=== PATIENT | female | born 1950 | race Caucasian/White ===

== ENCOUNTER 2016-11-05 15:21 | Emergency (ER) | payer OTHER ==
--- NOTE | 2016-11-05 16:43 | ED NURSING NOTES ---
Clinical Report - Nurses [facility] [address] [place] [address] 11/05/2016 15:22 Patient: JASMIN SUAREZ TRIAGE Triage time 1544 PM. Chief Complaint: (Low Blood Pressure). Alert. No acute distress. HEBER COMA SCORE: [place] Coma Scale: 15- eyes open spontaneously (4); best verbal response- oriented x 4 (5); best motor response- obeys commands (6). --15:50 Maurice Franco R.N. 15:44 11/05/16. BP: 129/69. HR: 84. RR: 16. O2 saturation: 99% on room air. Temp: 98.4 F (oral). Pain level now: 0/10. --15:50 Maurice Franco R.N. Weight: 113.3 kg stated. Height/Length: 67 inches Per Patient. BMI: 39.2. --15:49 Maurice Franco R.N. Medications Amlodipine Besylate Oral 5 mg, daily. Cozaar Oral 50 mg, daily. Insulin 100 units, at bedtime. Metformin HCl Oral 500 mg, daily. Novalog insulin (sliding scale). --15:46 Maurice Franco R.N. Allergies Codeine. Erythromycin. --15:46 Maurice Franco R.N. History Arrived by private vehicle. Historian: patient. Accompanied by family. This started today. ( Patient presents to the ED with symptoms of dizziness and low blood pressure. Patient states she woke up this morning feeling "crummy and fatigued." Patients states that she has been sick with the respiratory virus and has been coughing and feeling weak.). She has had weakness, a cough and difficulty breathing. Treatment RANCH HAND: None. PAST MEDICAL HX: Diabetes mellitus. Hypertension. The patient is premenarchal. Denies current . SOCIAL HX: Never smoker. Alcohol use. (no). History of drug use. (no). FALL RISK ASSESSMENT: Fall risk assessment completed. No fall risk identified. NUTRITIONAL RISK ASSESSMENT: The nutritional risk assessment revealed no deficiencies. FUNCTIONAL ASSESSMENT: Functional assessment: no impairments noted. LEARNING NEEDS ASSESSMENT: The learning needs assessment revealed no barriers. SKIN INTEGRITY ASSESSMENT: Skin integrity risk assessment completed. No skin integrity risk identified. --15:50 Maurice Franco R.N. PROBLEMS: Diabetes Mellitus. Hypertension. --15:48 Maurice Franco R.N. ADDITIONAL SURGERIES: Cholecystectomy. . --15:48 Maurice Franco R.N. PHYSICAL ASSESSMENT Ambulatory to room. GENERAL / NEURO / PSYCH: Alert. Oriented X 4. Appears in no acute distress. HEENT: Pupils equal, round and reactive to light. No facial asymmetry noted. Mucous membranes are pink. RESPIRATORY: Respirations not labored. Nonproductive cough. Chest nontender. Breath sounds within normal limits. CVS: Normal sinus rhythm noted. Capillary refill less than 2 seconds. Pulses within normal limits. GI / : Abdomen soft and nontender and normal bowel sounds. SKIN: Skin intact. Skin is warm and dry. Normal skin turgor. --15:50 Maurice Franco R.N. NURSING PROGRESS NOTES 15:56 11/05/16. BP: 131/62 taken on the left arm, via an automated monitor, while lying. HR: 83. --15:56 Maurice Franco R.N. 15:56 11/05/16. BP: 116/59 taken on the left arm, via an automated monitor, while sitting. HR: 95. --15:57 Maurice Franco R.N. 15:57 11/05/16. BP: 128/75 taken on the left arm, via an automated monitor, while standing. HR: 100. --15:57 Maurice Franco R.N. DISPOSITION / DISCHARGE 16:44 11/05/16. BP: 108/50. HR: 91. RR: 16. O2 saturation: 99%. --16:45 Maurice Franco R.N. Departure time: 17:10 Nov 05 2016. No learning barriers present. Discharge instructions provided and reviewed with the patient. Patient verbalized understanding. Written instructions provided in Greek. The patient was discharged by the physician. She was discharged home and accompanied by educational programming director. She left the Emergency Department ambulatory and via private vehicle. Cupola Operator driving. --18:47 Atlagracia Archibald R.N. Locked/Released at 11/05/2016 18:47 by Altagracia Archibald R.N.
--- NOTE | 2016-11-05 16:43 | ED CLINICAL REPORT ---
Clinical Report - Physicians/Mid Levels [facility] [address] [place] [address] 11/05/2016 15:22 Patient: JASMIN SUAREZ Time Seen: 15:59; initial patient contact. Arrived- By private vehicle. Historian- patient. HISTORY OF PRESENT ILLNESS Chief Complaint: BLOOD PRESSURE CHECK. ( Telephone warm and lightheaded, checked BP at home, systolic in the 90's.). This started today and is now gone (lasted about 2 hours). At its maximum, severity described as moderate. When seen in the E.D., it was gone. No loss of appetite, headache or visual disturbance. She has had fatigue. Similar symptoms previously: Twice. Recent medical care: Not recently seen/assessed. REVIEW OF SYSTEMS No fever, difficulty breathing, chest pain or pain or chills. No calf pain, cough, difficulty breathing, pedal edema or palpitations. No diarrhea, nausea, vomiting, fainting episodes or headache. No head injury or numbness. The patient has had dizziness. All systems otherwise negative, except as recorded above. PAST HISTORY Diabetes Mellitus. Hypertension. SURGERIES: Cholecystectomy. . SOCIAL HISTORY Never smoker. No alcohol use or drug use. ADDITIONAL NOTES The nursing notes have been reviewed with agreement regarding the chief complaint, PMH and patient medications and allergies. PHYSICAL EXAM Vital Signs: 11/05/2016 15:57 BP: 128/75. HR: 100. 11/05/2016 15:56 BP: 116/59. HR: 95. 11/05/2016 15:56 BP: 131/62. HR: 83. Have been reviewed. Postural vitals normal. Appearance: Alert. No acute distress. Eyes: Pupils equal, round and reactive to light. Eyes normal inspection. No pale conjunctivae. ENT: Pharynx normal. Neck: Normal inspection. No JVD. CVS: Normal heart rate and rhythm. Heart sounds normal. Respiratory: No respiratory distress. Breath sounds normal. Abdomen: Soft and nontender. Bowel sounds normal. Skin: Skin warm and dry. Normal skin color. No rash. Normal skin turgor. Extremities: Extremities exhibit normal ROM. No calf tenderness. No lower extremity edema. Neuro: Oriented X 3. No motor deficit. No sensory deficit. PROGRESS AND PROCEDURES Course of Care: Symptoms tend to occur not long after taking Amlodipine dose. Recommended keeping a BID BP log and discuss either splitting the dose or switching to PM dosing, but discuss w/ PCP prior. 11/05/2016 15:44 BP: 129/69. HR: 84. RR: 16. O2 saturation: 99%. Temp: 98.4 F. Pain level now: 0/10. Vital Signs: have been reviewed as normal. Disposition: Discharged home in good condition. Condition: good. CLINICAL IMPRESSION Mild idiopathic hypotension. INSTRUCTIONS Drink plenty of fluids. Your Current Medications: CONTINUE TAKING THE FOLLOWING MEDICATIONS: Amlodipine Besylate Oral : 5 mg daily. Cozaar Oral : 50 mg daily. Insulin* : 100 units at bedtime. Metformin HCl Oral : 500 mg daily. Novalog insulin* : sliding scale. Follow-up: Follow up with your doctor in about three days. Call for an appointment. Blood pressure screening was not performed during this visit because the patient has an active diagnosis of hypertension. (Electronically signed by Aiden Pastor Dr. 11/06/2016 20:39)
--- NOTE | 2016-11-05 16:43 | ED CLINICAL REPORT ---
Clinical Report - Physicians/Mid Levels [facility] [address] [place] [address] 11/05/2016 15:22 Patient: JASMIN SUAREZ Time Seen: 15:59; initial patient contact. Arrived- By private vehicle. Historian- patient. HISTORY OF PRESENT ILLNESS Chief Complaint: BLOOD PRESSURE CHECK. ( [place] warm and lightheaded, checked BP at home, systolic in the 90's.). This started today and is now gone (lasted about 2 hours). At its maximum, severity described as moderate. When seen in the E.D., it was gone. No loss of appetite, headache or visual disturbance. She has had fatigue. Similar symptoms previously: Twice. Recent medical care: Not recently seen/assessed. REVIEW OF SYSTEMS No fever, difficulty breathing, chest pain or pain or chills. No calf pain, cough, difficulty breathing, pedal edema or palpitations. No diarrhea, nausea, vomiting, fainting episodes or headache. No head injury or numbness. The patient has had dizziness. All systems otherwise negative, except as recorded above. PAST HISTORY Diabetes Mellitus. Hypertension. SURGERIES: Cholecystectomy. . SOCIAL HISTORY Never smoker. No alcohol use or drug use. ADDITIONAL NOTES The nursing notes have been reviewed with agreement regarding the chief complaint, PMH and patient medications and allergies. PHYSICAL EXAM Vital Signs: 11/05/2016 15:57 BP: 128/75. HR: 100. 11/05/2016 15:56 BP: 116/59. HR: 95. 11/05/2016 15:56 BP: 131/62. HR: 83. Have been reviewed. Postural vitals normal. Appearance: Alert. No acute distress. Eyes: Pupils equal, round and reactive to light. Eyes normal inspection. No pale conjunctivae. ENT: Pharynx normal. Neck: Normal inspection. No JVD. CVS: Normal heart rate and rhythm. Heart sounds normal. Respiratory: No respiratory distress. Breath sounds normal. Abdomen: Soft and nontender. Bowel sounds normal. Skin: Skin warm and dry. Normal skin color. No rash. Normal skin turgor. Extremities: Extremities exhibit normal ROM. No calf tenderness. No lower extremity edema. Neuro: Oriented X 3. No motor deficit. No sensory deficit. PROGRESS AND PROCEDURES Course of Care: Symptoms tend to occur not long after taking Amlodipine dose. Recommended keeping a BID BP log and discuss either splitting the dose or switching to PM dosing, but discuss w/ PCP prior. 11/05/2016 15:44 BP: 129/69. HR: 84. RR: 16. O2 saturation: 99%. Temp: 98.4 F. Pain level now: 0/10. Vital Signs: have been reviewed as normal. Disposition: Discharged home in good condition. Condition: good. CLINICAL IMPRESSION Mild idiopathic hypotension. INSTRUCTIONS Drink plenty of fluids. Your Current Medications: CONTINUE TAKING THE FOLLOWING MEDICATIONS: Amlodipine Besylate Oral : 5 mg daily. Cozaar Oral : 50 mg daily. Insulin* : 100 units at bedtime. Metformin HCl Oral : 500 mg daily. Novalog insulin* : sliding scale. Follow-up: Follow up with your doctor in about three days. Call for an appointment. Blood pressure screening was not performed during this visit because the patient has an active diagnosis of hypertension. (Electronically signed by Aiden Pastor Dr. 11/06/2016 20:39)
--- NOTE | 2016-11-05 16:43 | ED NURSING NOTES ---
Clinical Report - Nurses [facility] [address] [place] [address] 11/05/2016 15:22 Patient: JASMIN SUAREZ TRIAGE Triage time 1544 PM. Chief Complaint: (Low Blood Pressure). Alert. No acute distress. HEBER COMA SCORE: [place] Coma Scale: 15- eyes open spontaneously (4); best verbal response- oriented x 4 (5); best motor response- obeys commands (6). --15:50 Maurice Franco R.N. 15:44 11/05/16. BP: 129/69. HR: 84. RR: 16. O2 saturation: 99% on room air. Temp: 98.4 F (oral). Pain level now: 0/10. --15:50 Maurice Franco R.N. Weight: 113.3 kg stated. Height/Length: 67 inches Per Patient. BMI: 39.2. --15:49 Maurice Franco R.N. Medications Amlodipine Besylate Oral 5 mg, daily. Cozaar Oral 50 mg, daily. Insulin 100 units, at bedtime. Metformin HCl Oral 500 mg, daily. Novalog insulin (sliding scale). --15:46 Maurice Franco R.N. Allergies Codeine. Erythromycin. --15:46 Maurice Franco R.N. History Arrived by private vehicle. Historian: patient. Accompanied by family. This started today. ( Patient presents to the ED with symptoms of dizziness and low blood pressure. Patient states she woke up this morning feeling "crummy and fatigued." Patients states that she has been sick with the respiratory virus and has been coughing and feeling weak.). She has had weakness, a cough and difficulty breathing. Treatment SENIOR MEDICAL TECHNOLOGIST: None. PAST MEDICAL HX: Diabetes mellitus. Hypertension. The patient is premenarchal. Denies current . SOCIAL HX: Never smoker. Alcohol use. (no). History of drug use. (no). FALL RISK ASSESSMENT: Fall risk assessment completed. No fall risk identified. NUTRITIONAL RISK ASSESSMENT: The nutritional risk assessment revealed no deficiencies. FUNCTIONAL ASSESSMENT: Functional assessment: no impairments noted. LEARNING NEEDS ASSESSMENT: The learning needs assessment revealed no barriers. SKIN INTEGRITY ASSESSMENT: Skin integrity risk assessment completed. No skin integrity risk identified. --15:50 Maurice Franco R.N. PROBLEMS: Diabetes Mellitus. Hypertension. --15:48 Maurice Franco R.N. ADDITIONAL SURGERIES: Cholecystectomy. . --15:48 Maurice Franco R.N. PHYSICAL ASSESSMENT Ambulatory to room. GENERAL / NEURO / PSYCH: Alert. Oriented X 4. Appears in no acute distress. HEENT: Pupils equal, round and reactive to light. No facial asymmetry noted. Mucous membranes are pink. RESPIRATORY: Respirations not labored. Nonproductive cough. Chest nontender. Breath sounds within normal limits. CVS: Normal sinus rhythm noted. Capillary refill less than 2 seconds. Pulses within normal limits. GI / : Abdomen soft and nontender and normal bowel sounds. SKIN: Skin intact. Skin is warm and dry. Normal skin turgor. --15:50 Maurice Franco R.N. NURSING PROGRESS NOTES 15:56 11/05/16. BP: 131/62 taken on the left arm, via an automated monitor, while lying. HR: 83. --15:56 Maurice Franco R.N. 15:56 11/05/16. BP: 116/59 taken on the left arm, via an automated monitor, while sitting. HR: 95. --15:57 Maurice Franco R.N. 15:57 11/05/16. BP: 128/75 taken on the left arm, via an automated monitor, while standing. HR: 100. --15:57 Maurice Franco R.N. DISPOSITION / DISCHARGE 16:44 11/05/16. BP: 108/50. HR: 91. RR: 16. O2 saturation: 99%. --16:45 Maurice Franco R.N. Departure time: 17:10 Nov 05 2016. No learning barriers present. Discharge instructions provided and reviewed with the patient. Patient verbalized understanding. Written instructions provided in Fijian. The patient was discharged by the physician. She was discharged home and accompanied by assembly line leader. She left the Emergency Department ambulatory and via private vehicle. Sash Finisher driving. --18:47 Altagracia Archibald R.N. Locked/Released at 11/05/2016 18:47 by Altagracia Archibald R.N.
--- NOTE | 2016-11-06 20:40 | ED MED RECONCILIATION SUMMARY ---
Patient: JASMIN SUAREZ Medication Reconciliation Report [facility] VisitID: [id number] [address] [place] [address] 66y, F Registration Date/Time: 11/05/2016 Weight: 113.3 kg Height/Length: 67 in. BMI: 39.2 ALLERGIES: Codeine, Erythromycin The patient's Home Medications are listed below: CONTINUE TAKING THE FOLLOWING MEDICATIONS: Amlodipine Besylate Oral 5 mg, daily Cozaar Oral 50 mg, daily Insulin 100 units, at bedtime Metformin HCl Oral 500 mg, daily Novalog insulin, sliding scale The source(s) of the original Home Medication information: Not obtained. The following Medications were given to the patient in the Emergency Department: None. The following Medications were prescribed to the patient: None.
--- NOTE | 2016-11-06 20:40 | ED MED RECONCILIATION SUMMARY ---
Patient: JASMIN SUAREZ Medication Reconciliation Report [facility] VisitID: [id number] [address] [place] [address] 66y, F Registration Date/Time: 11/05/2016 Weight: 113.3 kg Height/Length: 67 in. BMI: 39.2 ALLERGIES: Codeine, Erythromycin The patient's Home Medications are listed below: CONTINUE TAKING THE FOLLOWING MEDICATIONS: Amlodipine Besylate Oral 5 mg, daily Cozaar Oral 50 mg, daily Insulin 100 units, at bedtime Metformin HCl Oral 500 mg, daily Novalog insulin, sliding scale The source(s) of the original Home Medication information: Not obtained. The following Medications were given to the patient in the Emergency Department: None. The following Medications were prescribed to the patient: None.
--- NOTE | 2016-11-06 20:40 | ED MAR SUMMARY ---
..... Medication Administration Record [facility] [address] [place] [id number] Patient: JASMIN SUAREZ Visit ID: [id number] 66y, F Weight: 113.3 kg Height/Length: 67 in BMI: 39.2 ALLERGIES: Codeine, Erythromycin
--- NOTE | 2016-11-06 20:40 | ED DISCHARGE INSTRUCTIONS ---
Patient: JASMIN SUAREZ General Instructions [facility] VisitID: [id number] [place] [address] 66y, F Registration Date/Time: 11/05/2016 Mild idiopathic hypotension. INSTRUCTIONS Drink plenty of fluids. Your Current Medications: CONTINUE TAKING THE FOLLOWING MEDICATIONS: Amlodipine Besylate Oral : 5 mg daily. Cozaar Oral : 50 mg daily. Insulin* : 100 units at bedtime. Metformin HCl Oral : 500 mg daily. Novalog insulin* : sliding scale. Follow-up: Follow up with your doctor in about three days. Call for an appointment. Blood pressure screening was not performed during this visit because the patient has an active diagnosis of hypertension. ADDITIONAL INFORMATION Hypotension (All Causes) The normal blood pressure range is between 90/60 and 140/80. Low blood pressure (also calledhypotension) is a decrease in blood pressure from what is normal for you. Low blood pressure can cause symptoms of dizziness, lightheadedness or fainting. Some of the causes for low blood pressure: Certain medicines, including: High blood pressure pills Diuretics (water pills) Some heart medicines Some antidepressants Pain, anxiety, sedative, and sleeping medicines Dehydration, severe infection, fever Blood loss (for example, bleeding from the stomach or intestines) Congestive heart failure (CHF) Change in heart rate or rhythm (arrhythmia) Orthostatic hypotension(from a sudden change in body position from lying down to standing) Alcohol or drug intoxication Altered reflexes of the blood vessels and heart responsible for keeping the blood pressure normal with changes of position Treatment will depend on the cause of your low blood pressure. Home Care: Rest until symptoms improve. Follow the treatment plan described by your doctor. Follow Up with your doctor or as advised by our staff. Get Prompt Medical Attention if any of the following occur: Dizziness, lightheadedness, or fainting Black or red color in your stools or vomit Shortness of breath or difficulty breathing Chest, shoulder, arm, neck or upper back pain Abdominal pain, persistent diarrhea or vomiting Inability to eat or drink Fever of 100.4F (38C) or higher, or as directed by your healthcare provider Urinary burning or foul-smelling urine You have been given the following additional information: Hypotension, All Causes (Electronically signed by Aiden Pastor Dr. 11/06/2016 20:39)
--- NOTE | 2016-11-06 20:40 | ED DISCHARGE INSTRUCTIONS ---
Patient: JASMIN SUAREZ General Instructions [facility] VisitID: [id number] [place] [address] 66y, F Registration Date/Time: 11/05/2016 Mild idiopathic hypotension. INSTRUCTIONS Drink plenty of fluids. Your Current Medications: CONTINUE TAKING THE FOLLOWING MEDICATIONS: Amlodipine Besylate Oral : 5 mg daily. Cozaar Oral : 50 mg daily. Insulin* : 100 units at bedtime. Metformin HCl Oral : 500 mg daily. Novalog insulin* : sliding scale. Follow-up: Follow up with your doctor in about three days. Call for an appointment. Blood pressure screening was not performed during this visit because the patient has an active diagnosis of hypertension. ADDITIONAL INFORMATION Hypotension (All Causes) The normal blood pressure range is between 90/60 and 140/80. Low blood pressure (also calledhypotension) is a decrease in blood pressure from what is normal for you. Low blood pressure can cause symptoms of dizziness, lightheadedness or fainting. Some of the causes for low blood pressure: Certain medicines, including: High blood pressure pills Diuretics (water pills) Some heart medicines Some antidepressants Pain, anxiety, sedative, and sleeping medicines Dehydration, severe infection, fever Blood loss (for example, bleeding from the stomach or intestines) Congestive heart failure (CHF) Change in heart rate or rhythm (arrhythmia) Orthostatic hypotension(from a sudden change in body position from lying down to standing) Alcohol or drug intoxication Altered reflexes of the blood vessels and heart responsible for keeping the blood pressure normal with changes of position Treatment will depend on the cause of your low blood pressure. Home Care: Rest until symptoms improve. Follow the treatment plan described by your doctor. Follow Up with your doctor or as advised by our staff. Get Prompt Medical Attention if any of the following occur: Dizziness, lightheadedness, or fainting Black or red color in your stools or vomit Shortness of breath or difficulty breathing Chest, shoulder, arm, neck or upper back pain Abdominal pain, persistent diarrhea or vomiting Inability to eat or drink Fever of 100.4F (38C) or higher, or as directed by your healthcare provider Urinary burning or foul-smelling urine You have been given the following additional information: Hypotension, All Causes (Electronically signed by Aiden Pastor Dr. 11/06/2016 20:39)
--- NOTE | 2016-11-06 20:40 | ED MAR SUMMARY ---
..... Medication Administration Record [facility] [address] [place], [place] [id number] Patient: JASMIN SUAREZ Visit ID: [id number] 66y, F Weight: 113.3 kg Height/Length: 67 in BMI: 39.2 ALLERGIES: Codeine, Erythromycin
== END 2016-11-05 17:10 | disposition home or self-care (01) ==
LOC: ED SRH 15:21
DX: I95.0 Idiopathic hypotension (principal); E11.9 Type 2 diabetes mellitus without complications; I10 Essential (primary) hypertension; Z79.4 Long term (current) use of insulin; Z88.1 Allergy status to other antibiotic agents; Z88.5 Allergy status to narcotic agent; Z79.84 Long term (current) use of oral hypoglycemic drugs

== ENCOUNTER 2017-05-11 22:05 | Emergency (ER) | payer OTHER ==
--- NOTE | 2017-05-12 01:01 | ED CLINICAL REPORT ---
Clinical Report - Physicians/Mid Levels [facility] [address] [place] [address] 05/11/2017 22:07 Patient: JASMIN SUAREZ Time Seen: 22:24; initial patient contact. HISTORY OF PRESENT ILLNESS The patient recovered at the scene. Chief Complaint: SINGLE SYNCOPAL EPISODE. This occurred just prior to arrival. Event was witnessed. The patient had preceding symptoms of light-headedness and warmth. The patient felt faint and lost consciousness. No seizure activity, incontinence or apnea noted. Did not lose pulse. Currently she has no symptoms. No injuries noted. Similar symptoms previously: Several times. Recent medical care: Not recently seen/assessed. REVIEW OF SYSTEMS No headache, dizziness, weakness, chest pain or palpitations. No abdominal pain, vomiting or diarrhea. All systems otherwise negative, except as recorded above. PAST HISTORY ( Diabetes Mellitus. Hypertension SURGERIES: Cholecystectomy. . --). Medications: Aspirin Oral (Tablet Chewable 81 mg). HumaLOG Subcutaneous 15 units, before meals. Levemir Subcutaneous 30 units, 2xdaily. MetFORMIN HCl Oral. Losartan Potassium Oral. Allergies: Codeine. SOCIAL HISTORY Never smoker. Occasional alcohol use. No drug use. ADDITIONAL NOTES The nursing notes have been reviewed. PHYSICAL EXAM Vital Signs: 05/11/2017 22:02 BP: 103/58. HR: 58. RR: 18. O2 saturation: 89%. Temp: 98.2 F. Pain level now: 0/10. Have been reviewed. Hypotensive. Bradycardic. Respiratory rate normal. Temperature normal. Oxygen saturation low. Appearance: Alert. No acute distress. ENT: Dry mucous membranes present. Neck: Normal inspection. CVS: Normal heart rate and rhythm. Heart sounds normal. Respiratory: No respiratory distress. Breath sounds normal. Abdomen: Soft and nontender. No organomegaly. Skin: Skin warm and dry. Slight pallor. Extremities: No lower extremity edema. Neuro: Alert. Oriented X 3. Mood/affect normal. Speech normal. LABS, X-RAYS, AND EKG Laboratory Tests: CBC w Diff: (MANUELA: 05/11/2017 22:16) ( MsgRcvd 05/11/2017 22:32) Final results Test Result Flag Units (Reference) WHITE BLOOD COUNT 12.2 H K/uL (4.5-11.5) RED BLOOD COUNT 4.40 M/uL (4.00-5.20) HEMOGLOBIN 12.3 gm/dL (12.0-16.0) HEMATOCRIT 37.0 % (36.0-46.0) MEAN CELL VOLUME 84 fL (80-100) MEAN CORPUSCULAR HGB 28 pg (26-34) MEAN CORPUSCULAR HGB CONC 33 g/dL (31-37) RED CELL DISTRIBUTION WIDTH 14.0 % (11.6-14.8) PLATELET COUNT 379 K/uL (150-400) NEUTROPHIL % 54.3 % (50-75) LYMPH % 34.3 % (25-40) MONO % 5.0 % (3-14) EOSINOPHIL % 5.9 H % (0-4) BASOPHIL % 0.5 % (0-2) CMP: (MANUELA: 05/11/2017 22:16) ( Mscvd 05/11/2017 22:48) Final results Test Result Flag Units (Reference) GLUCOSE 88 mg/dL (70-110) BUN 15 mg/dL (7-18) CREATININE 1.1 mg/dL (0.6-1.3) Estimated GFR 52.82 mL/min Estimated GFR- >60 mL/min Note: Persistent reduction over 3 months in eGFR<60 mL/min/1.73 m2 defines CKD. Patients with eGFR values>=60 mL/min/1.73 m2 may also have CKD if evidence ofpersistent proteinuria. Additional information may be foundat www.kidney.org. SODIUM 141 mmol/L (136-145) POTASSIUM 3.4 L mmol/L (3.5-5.1) CHLORIDE 105 mmol/L (98-107) CARBON DIOXIDE 30 mmol/L (21-32) CALCIUM 8.9 mg/dL (8.5-10.1) TOTAL PROTEIN 7.3 g/dL (6.4-8.2) ALBUMIN 3.4 g/dL (3.3-5.0) BILIRUBIN, TOTAL 0.3 mg/dL (0.0-1.0) ALKALINE PHOSPHATASE 112 U/L (46-116) AST (SGOT) 17 U/L (15-37) ALT (SGPT) 31 U/L (12-78) . PROGRESS AND PROCEDURES Disposition: Discharged home in good and improved condition. Condition: good. CLINICAL IMPRESSION Vasovagal syncope. An EKG was not performed because a benign, noncardiac etiology was evident without doing an EKG. Acute urinary tract infection with cystitis. INSTRUCTIONS Drink plenty of fluids. (Start splitting your Losartan, 1/2 tab in the AM and 1/2 tab in the PM). Prescription Medications: Bactrim DS 800 mg / 160 mg: take 1 tablet orally every 12 hours for 3 days. No refill. Substitution is permissible. Follow-up: Follow up with your doctor in about three days. Call for an appointment. Blood pressure screening was not performed during this visit because the patient has an active diagnosis of hypertension. (Electronically signed by Aiden Pastor Dr. 05/12/2017 8:44)
--- NOTE | 2017-05-12 01:02 | ED NURSING NOTES ---
Clinical Report - Nurses Merged With [facility] [address] [place] [place] [address] 05/11/2017 22:07 Patient: JASMIN SUAREZ TRIAGE Triage time 22:May 11 2017. Acuity: LEVEL 2. Chief Complaint: SYNCOPE. 22:13 05/11/17. Alert. No acute distress. ( BGL=72). SEPSIS SCREEN: Sepsis Screen. Negative (no infection suspected/documented). ADDISON COMA SCORE: Addison Coma Scale: 15- eyes open spontaneously (4); best verbal response- oriented x 4 (5); best motor response- obeys commands (6). --22:13 Deepthi Contreras 22:02 05/11/17. BP: 103/58. HR: 58. RR: 18. O2 saturation: 89% on room air. Temp: 98.2 F (oral). Pain level now: 0/10. Additional comments: Placed on NC at 2 LPM. --22:13 Deepthi Contreras. Height/Length: 67 inches Per Patient. --22:03 Deepthi Contreras. <<STRICKEN ENTRY-- Weight: 68 kg stated. BMI: 23.5. --END STRIKE>> Correction --22:03 Deepthi Contreras. Weight: 113.3 kg stated. BMI: 39.2. --22:03 Deepthi Contreras. Medications Losartan Potassium Oral. --22:06 Deepthi Contreras MetFORMIN HCl Oral. --22:07 Deepthi Contreras Levemir Subcutaneous 30 units, 2xdaily. --22:07 Deepthi Contreras HumaLOG Subcutaneous 15 units, before meals. --22:07 Deepthi Contreras Aspirin Oral (Tablet Chewable 81 mg). --22:07 Deepthi Cotnreras. Medication/allergy information source: the patient. --22:13 Deepthi Contreras. Allergies Codeine. --22:06 Deepthi Contreras. History Arrived by private vehicle. Historian: patient and family. Accompanied by family. This started just prior to arrival. ( Pt was in ER with daughter when she became dizzy and had a syncopal episode. States that this has happened before and the doctor thought it was d/t BP medication-she was taken off. States that she has eaten and been drinking fluids today.). The patient has had dizziness and weakness. Treatment FARM SERVICE ADVISER: None. PAST MEDICAL HX: Diabetes mellitus. Hypertension. Immunizations: up-to-date. SOCIAL HX: Never smoker. Occasional alcohol use. No drug use. NUTRITIONAL RISK ASSESSMENT: The nutritional risk assessment revealed no deficiencies. FUNCTIONAL ASSESSMENT: Functional assessment: no impairments noted. LEARNING NEEDS ASSESSMENT: The learning needs assessment revealed no barriers. FALL RISK ASSESSMENT: Fall risk assessment completed. Risk factors identified include patient history of fall. Fall interventions initiated. Patient placed on stretcher. Side rails up x2. Brakes on Bed in low position. Family at bedside. Call light in reach of patient. Instructed not to get up without assistance. SKIN INTEGRITY ASSESSMENT: Skin integrity risk assessment completed. No skin integrity risk identified. --22:13 Deepthi Contreras. PROBLEMS: Diabetes Mellitus. Hypertension. --22:08 Deepthi Contreras. ADDITIONAL SURGERIES: Cholecystectomy. . --22:08 Deepthi Contreras. Assessment The patient states feels the same. --22:13 Deepthi Contreras. Interventions ID band on patient. --22:13 Deepthi Contreras. PHYSICAL ASSESSMENT 22:13 05/11/17. Ambulatory to room. Baseline functional status: usually alert, oriented x4 and cooperative. Verbal response: usually clear and appropriate. Motor response: usually steady gait and moves all extremities equally GENERAL / NEURO / PSYCH: Awake. Oriented X 4. Alert. Appears in no acute distress. Speech normal. Mood/affect normal. Moves all extremities equally. No motor deficit. No sensory deficit. HEENT: No facial asymmetry noted. Pupils equal, round and reactive to light. EOM intact. Pharynx within normal limits. RESPIRATORY: Respirations not labored. CVS: Normal sinus rhythm noted. Capillary refill less than 2 seconds. SKIN: Skin is intact, warm and dry. --22:13 Deepthi Contreras. NURSING PROGRESS NOTES 22:14 05/11/2017 Site #1 started via IV in the left hand with an 20g angiocath, with aseptic technique and good blood return; one attempt. Blood drawn: rainbow set. Labeled in the presence of the patient and sent to the lab. Saline lock flushed with 10 mL saline. --22:14 Deepthi Contreras 22:14 05/11/17. The plan of care for this patient has been created. cook chef, pulse oximeter and NIBP monitor placed on patient; fiberglass pipe covering supervisor- Lead II and V5; monitor alarms on. Head of bed elevated. Reassurance given. Two patient identifiers checked. Call light placed in reach. Side rails up x 1. Bed placed in lowest position. Brakes of bed on. Patient ready for evaluation- chart flagged and ED physician and VOCATIONAL GUIDANCE COUNSELOR notified. --22:14 Deepthi Contreras 22:24 05/11/17. BP: unable to obtain. HR: 83. Additional comments: Patient unable to remain standing for duration of BP. 22:05/11/17. BP: 94/53 taken while sitting. HR: 73. 22:05/11/17. BP: 102/56 taken while lying. HR: 75. O2 saturation: 94% on nasal cannula at 4 liters/minute. --22:25 Deepthi Contreras 22:30 05/11/2017 Started bag #1 1000 mL IV Fluids IV NS (Saline); at 1000 mL/hr over 1 hour(s) via site #1 via IV pump. Allergies verified and confirmed 5 rights. IV patency established. IV site checked: no pain, redness, or swelling. IV flushed thoroughly pre- and post-medication administration. --23:33 Deepthi Contreras 23:33 05/11/2017 IV Fluids IV NS Discontinued: bag #1 infused. Total amount infused: 1000 mL. --23:33 Deepthi Contreras 23:34 05/11/17. BP: 138/62. HR: 74. RR: 15. O2 saturation: 98% on nasal cannula at 4 liters/minute. Pain level now: 0/10. --23:34 Deepthi Contreras 23:35 05/11/17. ( NC decreased to 2 LPM). --23:35 Deepthi Contreras 23:37 05/11/17. ( Pt ambulated to with .). --23:37 Deepthi Contreras 23:50 05/11/17. Patient ID band checked for patient name and birthdate: patient confirmed. Instructions provided to collect clean catch urine and patient verbalized understanding. Clean catch urine collected with return of jazlyn-colored clear urine; sample sent to lab. Specimen labeled in the presence of the patient. --23:58 Deepthi Contreras 01:05 05/12/2017 Bactrim DS (Sulfamethoxazole-TMP DS) PO Tablets 1 tab given. Allergies verified and confirmed 5 rights. --01:06 Deepthi Contreras 01:05/12/2017 Site #1 removed upon discharge. Catheter intact. Manual pressure and pressure dressing applied. --01:12 Deepthi Contreras. DISPOSITION / DISCHARGE 00:01 05/12/17. Condition at departure: improved. The goals identified in the patient's plan of care were met. FALL RISK ASSESSMENT: Fall risk assessment completed. No fall risk identified. ADDISON COMA SCORE: Addison Coma Scale: 15- eyes open spontaneously (4); best verbal response- oriented x 4 (5); best motor response- obeys commands (6). --00:01 Deepthi Contreras 00:00 05/12/17. BP: 138/62. HR: 71. RR: 15. O2 saturation: 94% on room air. Temp: 97.9 F. Pain level now: 0/10. --00:01 Deepthi Contrersa Departure time: :May 12 2017. No learning barriers present. Discharge instructions provided and reviewed with the patient and spouse. Reviewed warnings (Patient verbalized understanding of importance of taking entire course of antibiotics. Patient verbalized awareness of warning s/sx listed in dc paperwork.). Reviewed medication(s). Prescription(s) given to the patient (bactrim). Treatments reviewed. Reviewed referral to a primary care physician for followup. Patient verbalized understanding. Written instructions provided in Angolan. The patient was discharged by the physician. She was discharged home and accompanied by spouse. She left the Emergency Department ambulatory and via private vehicle. Spouse driving. --01:11 Deepthi Contreras. Locked/Released at 05/12/2017 1:12 by Deepthi Contreras,
--- NOTE | 2017-05-12 01:02 | ED ORDER SUMMARY ---
..... Patient: JASMIN SUAREZ OrderSheet [facility] VisitID: [id number] [place] [address] 67y, F Registration Date/Time: 05/11/2017 ORDER SHEET Weight: 113.3 kg (stated) Allergies: Codeine GENERAL ORDERS: CBC w Diff Urgent (22:14 05/11/2017 ASchmuck per protocol) (22:31 CHagerty ER Beadworker) CMP Urgent (22:14 05/11/2017 ASchmuck per protocol) (22:31 CHagerty ER Beadworker) UA-Culture if indicated Urgent (22:32 05/11/2017 Jacey Vargas) (Ack 22:41 [email or web address] ER Beadworker) (23:52 CHagerty ER Beadworker) MEDICATION ORDERS: Bactrim DS PO (Tablet 800-160 mg) 1 tab (NOW) (01:00 05/12/2017 Jacey Vargas) (Ack 1:03 ASchmuck) (1:06 ASchmuck) IV FLUIDS: IV NS : initial bolus none -, then 1000 mL/hr for X1 (NOW) (23:32 05/11/2017 ASchmuck verbal order read back to Jacey Vargas) (23:33 ASchmuck) ORDER SHEET NOTES: [Electronically signed by Deepthi Contreras (01:12 05/12/2017)] [Electronically signed by Aiden Pastor Dr. (08:44 05/12/2017)] [Electronically locked/signed by Deepthi Contreras (01:12 05/12/2017)]
--- NOTE | 2017-05-12 01:02 | ED ORDER SUMMARY ---
..... Patient: JASMIN SUAREZ OrderSheet [facility] VisitID: [id number] [place] [address] 67y, F Registration Date/Time: 05/11/2017 ORDER SHEET Weight: 113.3 kg (stated) Allergies: Codeine GENERAL ORDERS: CBC w Diff Urgent (22:14 05/11/2017 ASchmuck per protocol) (22:31 CHagerty ER Electric Motor Repairing Supervisor) CMP Urgent (22:14 05/11/2017 ASchmuck per protocol) (22:31 CHagerty ER Electric Motor Repairing Supervisor) UA-Culture if indicated Urgent (22:32 05/11/2017 Jacey Vargas) (Ack 22:41 Imbera Electronicserty ER Electric Motor Repairing Supervisor) (23:52 CHagerty ER Electric Motor Repairing Supervisor) MEDICATION ORDERS: Bactrim DS PO (Tablet 800-160 mg) 1 tab (NOW) (01:00 05/12/2017 Jacey Vargas) (Ack 1:03 ASchmuck) (1:06 ASchmuck) IV FLUIDS: IV NS : initial bolus none -, then 1000 mL/hr for X1 (NOW) (23:32 05/11/2017 ASchmuck verbal order read back to Jacey Vargas) (23:33 ASchmuck) ORDER SHEET NOTES: [Electronically signed by Deepthi Contreras (01:12 05/12/2017)] [Electronically signed by Aiden Pastor Dr. (08:44 05/12/2017)] [Electronically locked/signed by Deepthi Contreras (01:12 05/12/2017)]
--- NOTE | 2017-05-12 01:02 | ED NURSING NOTES ---
Clinical Report - Nurses [facility] [address] [place] [address] 05/11/2017 22:07 Patient: JASMIN SUAREZ TRIAGE Triage time 22:May 11 2017. Acuity: LEVEL 2. Chief Complaint: SYNCOPE. 22:13 05/11/17. Alert. No acute distress. ( BGL=72). SEPSIS SCREEN: Sepsis Screen. Negative (no infection suspected/documented). ADDISON COMA SCORE: Addison Coma Scale: 15- eyes open spontaneously (4); best verbal response- oriented x 4 (5); best motor response- obeys commands (6). --22:13 Deepthi Contreras 22:02 05/11/17. BP: 103/58. HR: 58. RR: 18. O2 saturation: 89% on room air. Temp: 98.2 F (oral). Pain level now: 0/10. Additional comments: Placed on NC at 2 LPM. --22:13 Deepthi Contreras. Height/Length: 67 inches Per Patient. --22:03 Deepthi Contreras. <<STRICKEN ENTRY-- Weight: 68 kg stated. BMI: 23.5. --END STRIKE>> Correction --22:03 Deepthi Contreras. Weight: 113.3 kg stated. BMI: 39.2. --22:03 Deepthi Contreras. Medications Losartan Potassium Oral. --22:06 Deepthi Contreras MetFORMIN HCl Oral. --22:07 Deepthi Contreras Levemir Subcutaneous 30 units, 2xdaily. --22:07 Deepthi Contreras HumaLOG Subcutaneous 15 units, before meals. --22:07 Deepthi Contreras Aspirin Oral (Tablet Chewable 81 mg). --22:07 Deepthi Contreras. Medication/allergy information source: the patient. --22:13 Deepthi Contreras. Allergies Codeine. --22:06 Deepthi Contreras. History Arrived by private vehicle. Historian: patient and family. Accompanied by family. This started just prior to arrival. ( Pt was in ER with daughter when she became dizzy and had a syncopal episode. States that this has happened before and the doctor thought it was d/t BP medication-she was taken off. States that she has eaten and been drinking fluids today.). The patient has had dizziness and weakness. Treatment TECHNICAL HEALTHCARE CONSULTANT: None. PAST MEDICAL HX: Diabetes mellitus. Hypertension. Immunizations: up-to-date. SOCIAL HX: Never smoker. Occasional alcohol use. No drug use. NUTRITIONAL RISK ASSESSMENT: The nutritional risk assessment revealed no deficiencies. FUNCTIONAL ASSESSMENT: Functional assessment: no impairments noted. LEARNING NEEDS ASSESSMENT: The learning needs assessment revealed no barriers. FALL RISK ASSESSMENT: Fall risk assessment completed. Risk factors identified include patient history of fall. Fall interventions initiated. Patient placed on stretcher. Side rails up x2. Brakes on Bed in low position. Family at bedside. Call light in reach of patient. Instructed not to get up without assistance. SKIN INTEGRITY ASSESSMENT: Skin integrity risk assessment completed. No skin integrity risk identified. --22:13 Deepthi Contreras. PROBLEMS: Diabetes Mellitus. Hypertension. --22:08 Deepthi Contreras. ADDITIONAL SURGERIES: Cholecystectomy. . --22:08 Deepthi Contreras. Assessment The patient states feels the same. --22:13 Deepthi Contreras. Interventions ID band on patient. --22:13 Deepthi Contreras. PHYSICAL ASSESSMENT 22:13 05/11/17. Ambulatory to room. Baseline functional status: usually alert, oriented x4 and cooperative. Verbal response: usually clear and appropriate. Motor response: usually steady gait and moves all extremities equally GENERAL / NEURO / PSYCH: Awake. Oriented X 4. Alert. Appears in no acute distress. Speech normal. Mood/affect normal. Moves all extremities equally. No motor deficit. No sensory deficit. HEENT: No facial asymmetry noted. Pupils equal, round and reactive to light. EOM intact. Pharynx within normal limits. RESPIRATORY: Respirations not labored. CVS: Normal sinus rhythm noted. Capillary refill less than 2 seconds. SKIN: Skin is intact, warm and dry. --22:13 Deepthi Contreras. NURSING PROGRESS NOTES 22:14 05/11/2017 Site #1 started via IV in the left hand with an 20g angiocath, with aseptic technique and good blood return; one attempt. Blood drawn: rainbow set. Labeled in the presence of the patient and sent to the lab. Saline lock flushed with 10 mL saline. --22:14 Deepthi Contreras 22:14 05/11/17. The plan of care for this patient has been created. surveillance system monitor, pulse oximeter and NIBP monitor placed on patient; cardiac technologist- Lead II and V5; monitor alarms on. Head of bed elevated. Reassurance given. Two patient identifiers checked. Call light placed in reach. Side rails up x 1. Bed placed in lowest position. Brakes of bed on. Patient ready for evaluation- chart flagged and ED physician and PRODUCT DEVELOPMENT SPECIALIST notified. --22:14 Deepthi Contreras 22:24 05/11/17. BP: unable to obtain. HR: 83. Additional comments: Patient unable to remain standing for duration of BP. 22:05/11/17. BP: 94/53 taken while sitting. HR: 73. 22:05/11/17. BP: 102/56 taken while lying. HR: 75. O2 saturation: 94% on nasal cannula at 4 liters/minute. --22:25 Deepthi Contreras 22:30 05/11/2017 Started bag #1 1000 mL IV Fluids IV NS (Saline); at 1000 mL/hr over 1 hour(s) via site #1 via IV pump. Allergies verified and confirmed 5 rights. IV patency established. IV site checked: no pain, redness, or swelling. IV flushed thoroughly pre- and post-medication administration. --23:33 Deepthi Contreras 23:33 05/11/2017 IV Fluids IV NS Discontinued: bag #1 infused. Total amount infused: 1000 mL. --23:33 Deepthi Contreras 23:34 05/11/17. BP: 138/62. HR: 74. RR: 15. O2 saturation: 98% on nasal cannula at 4 liters/minute. Pain level now: 0/10. --23:34 Deepthi Contreras 23:35 05/11/17. ( NC decreased to 2 LPM). --23:35 Deepthi Contreras 23:37 05/11/17. ( Pt ambulated to with .). --23:37 Deepthi Contreras 23:50 05/11/17. Patient ID band checked for patient name and birthdate: patient confirmed. Instructions provided to collect clean catch urine and patient verbalized understanding. Clean catch urine collected with return of jazlyn-colored clear urine; sample sent to lab. Specimen labeled in the presence of the patient. --23:58 Deepthi Contreras 01:05 05/12/2017 Bactrim DS (Sulfamethoxazole-TMP DS) PO Tablets 1 tab given. Allergies verified and confirmed 5 rights. --01:06 Deepthi Contreras 01:05/12/2017 Site #1 removed upon discharge. Catheter intact. Manual pressure and pressure dressing applied. --01:12 Deepthi Contreras. DISPOSITION / DISCHARGE 00:01 05/12/17. Condition at departure: improved. The goals identified in the patient's plan of care were met. FALL RISK ASSESSMENT: Fall risk assessment completed. No fall risk identified. ADDISON COMA SCORE: Addison Coma Scale: 15- eyes open spontaneously (4); best verbal response- oriented x 4 (5); best motor response- obeys commands (6). --00:01 Deepthi Contreras 00:00 05/12/17. BP: 138/62. HR: 71. RR: 15. O2 saturation: 94% on room air. Temp: 97.9 F. Pain level now: 0/10. --00:01 Deepthi Contreras Departure time: :May 12 2017. No learning barriers present. Discharge instructions provided and reviewed with the patient and spouse. Reviewed warnings (Patient verbalized understanding of importance of taking entire course of antibiotics. Patient verbalized awareness of warning s/sx listed in dc paperwork.). Reviewed medication(s). Prescription(s) given to the patient (bactrim). Treatments reviewed. Reviewed referral to a primary care physician for followup. Patient verbalized understanding. Written instructions provided in Belarusian. The patient was discharged by the physician. She was discharged home and accompanied by spouse. She left the Emergency Department ambulatory and via private vehicle. Spouse driving. --01:11 Deepthi Contreras. Locked/Released at 05/12/2017 1:12 by Deepthi Contreras,
--- NOTE | 2017-05-12 08:45 | ED MAR SUMMARY ---
..... Medication Administration Record [facility] [address] [place] [address] Patient: JASMIN SUAERZ Visit ID: [id number] 67y, F Weight: 113.3 kg Height/Length: 67 in BMI: 39.2 ALLERGIES: Codeine Start 22:30 05/11/2017 Deepthi Contreras,, Stop 23:33 05/11/2017 Deepthi Contreras, Medication Administered: IV NS (SALINE), Dose: IV Fluids over 1 hour(s), Rate: 1000 mL/hr, Dispensed: 1000 mL bag, Site: #1 left hand. Medication Ordered: IV NS : initial bolus none -, then 1000 mL/hr for X1 (NOW). Given 01:05 05/12/2017 Deepthi Contreras, Medication Administered: BACTRIM DS [PO] (SULFAMETHOXAZOLE-TMP DS), Dose: 1 tab Tablets PO. Medication Ordered: Bactrim DS PO (Tablet 800-160 mg) 1 tab (NOW).
--- NOTE | 2017-05-12 08:45 | ED MED RECONCILIATION SUMMARY ---
Patient: JASMIN SUAREZ Medication Reconciliation Report [facility] VisitID: [id number] [place] [address] 67y, F Registration Date/Time: 05/11/2017 Weight: 113.3 kg Height/Length: 67 in. BMI: 39.2 ALLERGIES: Codeine The patient's Home Medications are listed below: THE FOLLOWING MEDICATIONS NEED TO BE RECONCILED: Aspirin Oral (81 mg) HumaLOG Subcutaneous 15 units, before meals Levemir Subcutaneous 30 units, 2xdaily Losartan Potassium Oral MetFORMIN HCl Oral The source(s) of the original Home Medication information: patient The following Medications were given to the patient in the Emergency Department: IV NS IV Fluids bolus 0, then 1000 mL/hr, administered: 05/11/2017 10:30:00 PM Bactrim DS [PO] PO 1 tab, administered: 05/12/2017 1:05:00 AM The following Medications were prescribed to the patient: Bactrim DS 800 mg / 160 mg: take 1 tablet orally every 12 hours for 3 days. No refill. Substitution is permissible. -- Aiden Pastor Dr.
--- NOTE | 2017-05-12 08:45 | ED DISCHARGE INSTRUCTIONS ---
Patient: JASMIN SUAREZ General Instructions [facility] VisitID: [id number] [place] [address] 67y, F Registration Date/Time: 05/11/2017 Vasovagal syncope. An EKG was not performed because a benign, noncardiac etiology was evident without doing an EKG. Acute urinary tract infection with cystitis. INSTRUCTIONS Drink plenty of fluids. (Start splitting your Losartan, 1/2 tab in the AM and 1/2 tab in the PM). Prescription Medications: Bactrim DS 800 mg / 160 mg: take 1 tablet orally every 12 hours for 3 days. No refill. Substitution is permissible. Follow-up: Follow up with your doctor in about three days. Call for an appointment. Blood pressure screening was not performed during this visit because the patient has an active diagnosis of hypertension. ADDITIONAL INFORMATION Fainting:Vagal Reaction Fainting (syncope) is a temporary loss of consciousness ("passing out"). It occurs when blood flow to the brain is reduced. Your doctor believes that your episode was due to a vagal reaction. This condition is not a sign of serious disease. A vagal reaction is a reflex response that causes the pulse to slow down or the blood vessels to dilate. This causes the blood pressure to fall, reducing the blood flow to the brain if you are standing or sitting. That results in dizziness, near-fainting or fainting. Lying down usually stops the reaction within 60 seconds. This reflex response can occur during sudden fear, severe pain, emotional stress, overexertion, overheating, hunger, nausea or vomiting, prolonged standing or standing up after sitting or lying for a long time. Home Care: 1) Rest today and resume your normal activities as soon as you are feeling back to normal. 2) If you become light-headed or dizzy, lie down immediately or sit with your head lowered between your knees. Follow Up with your doctor as instructed. Get Prompt Medical Attention if any of the following occur: -- Another fainting spell occurs, which is not explained by the common causes listed above -- Chest, arm, neck, jaw, back or abdominal pain -- Shortness of breath -- Severe headache or seizure -- Blood in vomit, stools (black or red color) -- Unexpected vaginal bleeding -- Palpitations (very rapid or very slow or irregular heart beat) -- Signs of stroke: Weakness of an arm or leg or one side of the face Difficulty with speech or vision Extreme drowsiness, confusion, dizziness or fainting Bladder Infection,Female (Adult) A bladder infection ("cystitis" or "UTI") usually causes a constant urge to urinate and a burning when passing urine. Urine may be cloudy, smelly or dark. There may be pain in the lower abdomen. A bladder infection occurs when bacteria from the vaginal area enter the bladder opening (urethra). This can occur from sexual intercourse, wearing tight clothing, dehydration and other factors. Home Care: Drink lots of fluids (at least 6-8 glasses a day, unless you must restrict fluids for other medical reasons). This will force the medicine into your urinary system and flush the bacteria out of your body. Avoid sexual intercourse until your symptoms are gone. Avoid caffeine, alcohol and spicy foods. These can irritate the bladder. A bladder infection is treated with antibiotics. You may also be given Pyridium (generic = phenazopyridine) to reduce the burning sensation. This medicine will cause your urine to become a bright orange color. The orange urine may stain clothing. You may wear a pad or panty-liner to protect clothing. Preventing Future Infections: Always wipe from front to back after a bowel movement. Keep the genital area clean and dry. Drink plenty of fluids each day to avoid dehydration. Both sexual partners should wash before intercourse. Urinate right after intercourse to flush out the bladder. Wear cotton underwear and cotton-lined panty hose; avoid tight-fitting pants. If you are on control pills and are having frequent bladder infections, discuss with your doctor. Follow Up: Return to this facility or see your doctor if ALL symptoms are not gone after three days of treatment. Get Prompt Medical Attention if any of the following occur: Fever of 100.4F (38C) or higher, or as directed by your healthcare provider No improvement by the third day of treatment Increasing back or abdominal pain Repeated vomiting; unable to keep medicine down Weakness, dizziness or fainting Vaginal discharge Pain, redness or swelling in the labia (outer vaginal area) Sulfamethoxazole, Trimethoprim Oral tablet What is this medicine? SULFAMETHOXAZOLE; TRIMETHOPRIM or SMX-TMP (suhl fuh meth OK paula zohl; trye METH oh prim) is a combination of a sulfonamide antibiotic and a second antibiotic, trimethoprim. It is used to treat or prevent certain kinds of bacterial infections. It will not work for colds, flu, or other viral infections. How should I use this medicine? Take this medicine by mouth with a full glass of water. Follow the directions on the prescription label. Take your medicine at regular intervals. Do not take it more often than directed. Do not skip doses or stop your medicine early. Talk to your screenplay writer regarding the use of this medicine in children. Special care may be needed. This medicine has been used in children as young as 2 months of age. What side effects may I notice from receiving this medicine? Side effects that you should report to your doctor or health senior resident care director as soon as possible: allergic reactions like skin rash or hives, swelling of the face, lips, or tongue breathing problems fever or chills, sore throat irregular heartbeat, chest pain joint or muscle pain pain or difficulty passing urine red pinpoint spots on skin redness, blistering, peeling or loosening of the skin, including inside the mouth unusual bleeding or bruising unusually weak or tired yellowing of the eyes or skin Side effects that usually do not require medical attention (report to your doctor or health senior resident care director if they continue or are bothersome): diarrhea dizziness headache loss of appetite nausea, vomiting nervousness What may interact with this medicine? Do not take this medicine with any of the following medications: aminobenzoate potassium dofetilide metronidazole This medicine may also interact with the following medications: GRANT inhibitors like benazepril, enalapril, lisinopril, and ramipril cyclosporine digoxin diuretics indomethacin medicines for diabetes methenamine methotrexate phenytoin potassium supplements pyrimethamine sulfinpyrazone tricyclic antidepressants warfarin What if I miss a dose? If you miss a dose, take it as soon as you can. If it is almost time for your next dose, take only that dose. Do not take double or extra doses. Where should I keep my medicine? Keep out of the reach of children. Store at room temperature between 20 to 25 degrees C (68 to 77 degrees F). Protect from light. Throw away any unused medicine after the expiration date. What should I tell my health care provider before I take this medicine? They need to know if you have any of these conditions: anemia asthma being treated with anticonvulsants if you frequently drink alcohol containing drinks kidney disease liver disease low level of folic acid or [id number] dehydrogenase poor nutrition or malabsorption porphyria severe allergies thyroid disorder an unusual or allergic reaction to sulfamethoxazole, trimethoprim, sulfa drugs, other medicines, foods, dyes, or preservatives or trying to get breast-feeding What should I watch for while using this medicine? Tell your doctor or health senior resident care director if your symptoms do not improve. Drink several glasses of water a day to reduce the risk of kidney problems. Do not treat diarrhea with over the counter products. Contact your doctor if you have diarrhea that lasts more than 2 days or if it is severe and watery. This medicine can make you more sensitive to the sun. Keep out of the sun. If you cannot avoid being in the sun, wear protective clothing and use a sunscreen. Do not use sun lamps or tanning beds/booths. You have been given the following additional information: Syncope, Vasovagal Bladder Infection, Female (Adult) Sulfamethoxazole, Trimethoprim Oral tablet (Electronically signed by Aiden Pastor Dr. 05/12/2017 8:44)
--- NOTE | 2017-05-12 08:45 | ED MED RECONCILIATION SUMMARY ---
Patient: JASMIN SUAREZ Medication Reconciliation Report [facility] VisitID: [id number] [place] [address] 67y, F Registration Date/Time: 05/11/2017 Weight: 113.3 kg Height/Length: 67 in. BMI: 39.2 ALLERGIES: Codeine The patient's Home Medications are listed below: THE FOLLOWING MEDICATIONS NEED TO BE RECONCILED: Aspirin Oral (81 mg) HumaLOG Subcutaneous 15 units, before meals Levemir Subcutaneous 30 units, 2xdaily Losartan Potassium Oral MetFORMIN HCl Oral The source(s) of the original Home Medication information: patient The following Medications were given to the patient in the Emergency Department: IV NS IV Fluids bolus 0, then 1000 mL/hr, administered: 05/11/2017 10:30:00 PM Bactrim DS [PO] PO 1 tab, administered: 05/12/2017 1:05:00 AM The following Medications were prescribed to the patient: Bactrim DS 800 mg / 160 mg: take 1 tablet orally every 12 hours for 3 days. No refill. Substitution is permissible. -- Aiden Pastor Dr.
--- NOTE | 2017-05-12 08:45 | ED MAR SUMMARY ---
..... Medication Administration Record [facility] [address] [place] [address] Patient: JASMIN SUAREZ Visit ID: [id number] 67y, F Weight: 113.3 kg Height/Length: 67 in BMI: 39.2 ALLERGIES: Codeine Start 22:30 05/11/2017 Deepthi Contreras,, Stop 23:33 05/11/2017 Deepthi Contreras, Medication Administered: IV NS (SALINE), Dose: IV Fluids over 1 hour(s), Rate: 1000 mL/hr, Dispensed: 1000 mL bag, Site: #1 left hand. Medication Ordered: IV NS : initial bolus none -, then 1000 mL/hr for X1 (NOW). Given 01:05 05/12/2017 Deepthi Contreras, Medication Administered: BACTRIM DS [PO] (SULFAMETHOXAZOLE-TMP DS), Dose: 1 tab Tablets PO. Medication Ordered: Bactrim DS PO (Tablet 800-160 mg) 1 tab (NOW).
== END 2017-05-12 01:07 | disposition home or self-care (01) ==
LOC: ED SRH 22:05
DX: R55 Syncope and collapse (principal); N30.00 Acute cystitis without hematuria; E11.9 Type 2 diabetes mellitus without complications; I10 Essential (primary) hypertension; Z79.82 Long term (current) use of aspirin; Z79.84 Long term (current) use of oral hypoglycemic drugs; Z79.4 Long term (current) use of insulin; Z79.899 Other long term (current) drug therapy; Z88.5 Allergy status to narcotic agent
CPT/HCPCS: 90004; 90100; 90469; 95059